=== PATIENT | male | born 1945 | race Two or more races ===

== ENCOUNTER 2018-05-22 00:16 | Emergency (ER) | payer OTHER ==
[~2018-05-22] VITALS: Ht 167.6 cm; Wt 72.6 kg
[2018-05-22] MEDS ORDERED: KETO10TA2 PO (04:17)
== END 2018-05-22 04:34 | disposition home or self-care (01) ==
LOC: ER 00:16
DX: S63.8X1A Sprain of other part of right wrist and hand, initial encounter (principal); X50.0XXA Overexertion from strenuous movement or load, initial encounter; Y93.89 Activity, other specified; Y92.89 Other specified places as the place of occurrence of the external cause; Y99.8 Other external cause status